=== PATIENT | female | born 1990 | race Asian ===

== ENCOUNTER 2019-10-24 18:43 | Emergency (ER) | payer OTHER ==
[2019-10-24] MEDS ORDERED: Ondansetron INJ* 2 MG/ML VIAL IV ONE (19:25)
[2019-10-24] MEDS ORDERED: Pantoprazole IV* 40 MG IV ONE (19:25)
[2019-10-24] MEDS ORDERED: NS 0.9% 1000 ML** 1,000 ML IV ONE (19:25)
[2019-10-24] MEDS ORDERED: Ketorolac INJ* 15 MG/ML 1 ML VIAL IV ONE (19:25)
[2019-10-24 20:00] LABS: Hematocrit 39 % (35-47); Hemoglobin 12.4 g/dL (12.0-16.0); Mean Corpuscular HGB Conc 32 g/dL (31-36); Mean Corpuscular Hemoglobin 22 pg (27-31); Mean Corpuscular Volume 69 fL (80-97); Mean Platelet Volume 8.2 fL (7.4-10.4); Platelet Count 170 10^3/uL (150-450); Red Blood Count 5.61 10^6 /uL (3.70-4.87); Red Cell Distribution Width 15 % (10-15); White Blood Count 4.8 10^3/uL (3.5-10.8)
[2019-10-24 20:05] LABS: INR 1.19 (0.82-1.09)
[2019-10-24 20:14] LABS: ABS Lymphocytes 0.2 10^3/ul (1.0-4.8); ABS Monocytes 0.1 10^3/ul (0-0.8); ABS Neutrophils 4.5 10^3/ul (1.5-7.7); Eosinophil % 0.2 %; Lymphocyte % 3.2 %; Microcytosis 2+
[2019-10-24 20:19] LABS: ALT 18 U/L (7-52); AST 25 U/L (13-39); Albumin 4.8 g/dL (3.2-5.2); Albumin/Globulin Ratio 1.5 (1-3); Alkaline Phosphatase 32 U/L (34-104); Amylase 36 U/L (29-103); Anion Gap 6 mmol/L (2-11); BUN/Creatinine Ratio 19.4 (8-20); Blood Urea Nitrogen 14 mg/dL (6-24); C Reactive Protein 26.76 mg/L (<8.01); CO2 Carbon Dioxide 27 mmol/L (22-32); Calcium 9.3 mg/dL (8.6-10.3); Chloride 101 mmol/L (101-111); EGFR African American 117.6 (>60); EGFR Non-African American 97.2 (>60); Globulin 3.1 g/dL (2-4); Glucose 117 mg/dL (70-100); Potassium 3.3 mmol/L (3.5-5.0); Sodium 134 mmol/L (135-145); Total Protein 7.9 g/dL (6.4-8.9)
[2019-10-24 20:22] LABS: HCG Pregnancy < 0.60 mIU/mL
--- NOTE | 2019-10-24 20:37 | ED ---
Abdominal Pain/Female - HPI Summary HPI Summary: 29 year old F presenting to [facility] with a chief complaint of intermittent sharp abdominal pain worse on the left since 16:30 today. The patient rates the pain 8 /10 in severity. Patient reports vomiting earlier today, bloating, a fever and chills 2 days ago that has since resolved, diarrhea, nausea, constipation for 2- 3 days which resolved today, and a decreased appetite. Symptoms aggravated by exertion. Symptoms alleviated by lying down and Tylenol. Patient denies any hematuria or previous surgeries. She also denies any recreational drug use. Medication list reviewed. Allergy list reviewed. Home Medications Medication Instructions Recorded Confirmed Type NK [No Home Medications Reported] 10/24/19 10/24/19 History - History of Current Complaint Chief Complaint: EDAbdPain Stated Complaint: ABD PAIN PER PT Time Seen by Provider: 10/24/19 20:29 Hx Obtained From: Patient Onset/Duration: Lasting Days, Still Present Timing: Intermittent Episode Lasting Severity Initially: Moderate Severity Currently: Moderate Pain Intensity: 8 Pain Scale Used: 0-10 Numeric Location: Epigastric - Worse on the left side Character: Sharp Aggravating Factor(s): Other: - Exertion Alleviating Factor(s): Position - Lying down, Medications - Tylenol Associated Signs and Symptoms: Positive: Negative - Hematuria, Fever, Constipation, Decreased Appetite, Nausea, Vomiting, Diarrhea, Other: - Bloating ; chills; diarrhea Allergies/Adverse Reactions: Allergies Allergy/AdvReac Type Severity Reaction Status Date / Time No Known Allergies Allergy Verified 10/24/19 18:50 Home Medications: Home Medications Dicyclomine CAP* [Bentyl CAP*] 10 mg PO TID PRN #20 cap 10/24/19 [Rx] Ondansetron ODT TAB* [Zofran 4 MG Odt TAB*] 4 mg PO Q8H PRN #12 tab.odt [Rx] PMH/Surg Hx/FS Hx/Imm Hx Endocrine/Hematology History: Denies: Hx Diabetes Cardiovascular History: Denies: Hx Hypertension Sensory History: Denies: Hx Legally Blind, Hx Deafness Opthamlomology History: Denies: Hx Legally Blind EENT History: Denies: Hx Deafness - Surgical History Surgical History: None Infectious Disease History: No Infectious Disease History: Denies: Traveled Outside the [place] in Last 30 Days - Family History Known Family History: Negative: Hypertension, Diabetes - Social History Alcohol Use: None Hx Substance Use: No Substance Use Type: Reports: None Hx Tobacco Use: No Smoking Status (MU): Never Smoked Tobacco Review of Systems Positive: Fever, Chills Positive: Abdominal Pain, Vomiting, Diarrhea, Nausea, Other - Bloating; constipation; decreased appetite Negative: hematuria All Other Systems Reviewed And Are Negative: Yes Physical Exam - Summary Physical Exam Summary: Constitutional: Well-developed, Well-nourished, Alert. (-) Distressed Skin: Warm, Dry HENT: Normocephalic; Atraumatic Eyes: Conjunctiva normal Neck: Musculoskeletal ROM normal neck. (-) JVD, (-) Stridor, (-) Tracheal deviation Cardio: Rhythm regular, rate normal, Heart sounds normal; Intact distal pulses; Radial pulses are 2+ and symmetric. (-) Murmur Pulmonary/Chest wall: Effort normal. (-) Respiratory distress, (-) Wheezes, (-) Rales Abd: Soft, (-) tenderness, Slight distension, (-) Guarding, (-) Rebound Musculoskeletal: (-) Edema Lymph: (-) Cervical adenopathy Neuro: Alert, Oriented x3 Psych: Mood and affect Normal Triage Information Reviewed: Yes Vital Signs On Initial Exam: Initial Vitals Temp Pulse Resp BP Pulse Ox 99.8 F 105 18 142/54 102 10/24/19 18:45 10/24/19 18:45 10/24/19 18:45 10/24/19 18:45 10/24/19 18:45 Vital Signs Reviewed: Yes Procedures - Sedation Patient Received Moderate/Deep Sedation with Procedure: No Diagnostics - Vital Signs Vital Signs Temp Pulse Resp BP Pulse Ox 10/24/19 18:45 99.8 F 105 18 142/54 102 - Laboratory Lab Results: Lab Results 10/24/19 10/24/19 10/24/19 Range/Units 19:52 19:52 19:52 WBC 4.8 (3.5-10.8) 10^3/uL RBC 5.61 H (3.70-4.87) 10^6 /uL Hgb 12.4 (12.0-16.0) g/dL Hct 39 (35-47) % MCV 69 L (80-97) fL MCH 22 L (27-31) pg MCHC 32 (31-36) g/dL RDW 15 (10-15) % Plt Count 170 (150-450) 10^3/uL MPV 8.2 (7.4-10.4) fL Neut % (Auto) 93.8 % Lymph % (Auto) 3.2 % [place] % (Auto) 2.7 % Eos % (Auto) 0.2 % Baso % (Auto) 0.1 % Absolute Neuts (auto) 4.5 (1.5-7.7) 10^3/ul Absolute Lymphs (auto) 0.2 L (1.0-4.8) 10^3/ul Absolute Monos (auto) 0.1 (0-0.8) 10^3/ul Absolute Eos (auto) 0.0 (0-0.6) 10^3/ul Absolute Basos (auto) 0.0 (0-0.2) 10^3/ul Absolute Nucleated RBC 0.0 10^3/ul Nucleated RBC % 0.0 Hypochromasia 2+ Microcytosis 2+ INR (Anticoag Therapy) 1.19 H (0.82-1.09) Sodium 134 L (135-145) mmol/L Potassium 3.3 L (3.5-5.0) mmol/L Chloride 101 (101-111) mmol/L Carbon Dioxide 27 (22-32) mmol/L Anion Gap 6 (2-11) mmol/L BUN 14 (6-24) mg/dL Creatinine 0.72 (0.51-0.95) mg/dL Est GFR ( Amer) 117.6 (>60) Est GFR (Non-Af Amer) 97.2 (>60) BUN/Creatinine Ratio 19.4 (8-20) Glucose 117 H (70-100) mg/dL Lactic Acid (0.5-2.0) mmol/L Calcium 9.3 (8.6-10.3) mg/dL Total Bilirubin 0.40 (0.2-1.0) mg/dL AST 25 (13-39) U/L ALT 18 (7-52) U/L Alkaline Phosphatase 32 L (34-104) U/L C-Reactive Protein 26.76 H (<8.01) mg/L Total Protein 7.9 (6.4-8.9) g/dL Albumin 4.8 (3.2-5.2) g/dL Globulin 3.1 (2-4) g/dL Albumin/Globulin Ratio 1.5 (1-3) Amylase 36 (29-103) U/L Lipase 10 L (11.0-82.0) U/L Beta HCG, Quant < 0.60 mIU/mL 10/24/19 Range/Units 19:52 WBC (3.5-10.8) 10^3/uL RBC (3.70-4.87) 10^6 /uL Hgb (12.0-16.0) g/dL Hct (35-47) % MCV (80-97) fL MCH (27-31) pg MCHC (31-36) g/dL RDW (10-15) % Plt Count (150-450) 10^3/uL MPV (7.4-10.4) fL Neut % (Auto) % Lymph % (Auto) % [place] % (Auto) % Eos % (Auto) % Baso % (Auto) % Absolute Neuts (auto) (1.5-7.7) 10^3/ul Absolute Lymphs (auto) (1.0-4.8) 10^3/ul Absolute Monos (auto) (0-0.8) 10^3/ul Absolute Eos (auto) (0-0.6) 10^3/ul Absolute Basos (auto) (0-0.2) 10^3/ul Absolute Nucleated RBC 10^3/ul Nucleated RBC % Hypochromasia Microcytosis INR (Anticoag Therapy) (0.82-1.09) Sodium (135-145) mmol/L Potassium (3.5-5.0) mmol/L Chloride (101-111) mmol/L Carbon Dioxide (22-32) mmol/L Anion Gap (2-11) mmol/L BUN (6-24) mg/dL Creatinine (0.51-0.95) mg/dL Est GFR ( Amer) (>60) Est GFR (Non-Af Amer) (>60) BUN/Creatinine Ratio (8-20) Glucose (70-100) mg/dL Lactic Acid 0.6 (0.5-2.0) mmol/L Calcium (8.6-10.3) mg/dL Total Bilirubin (0.2-1.0) mg/dL AST (13-39) U/L ALT (7-52) U/L Alkaline Phosphatase (34-104) U/L C-Reactive Protein (<8.01) mg/L Total Protein (6.4-8.9) g/dL Albumin (3.2-5.2) g/dL Globulin (2-4) g/dL Albumin/Globulin Ratio (1-3) Amylase (29-103) U/L Lipase (11.0-82.0) U/L Beta HCG, Quant mIU/mL Result Diagrams: 10/24/19 19:52 10/24/19 19:52 Lab Statement: Any lab studies that have been ordered have been reviewed, and results considered in the medical decision making process. Re-Evaluation - Re-Evaluation 21:45 Re-Evaluation Time: 21:45 Change: Improved Comment: Patient is feeling better. Abdominal Pain Fem Course/Dx - Course Course Of Treatment: Is here with 3 days of fever, vomiting, abdominal cramping , bloating. Patient had sharp left sided abdominal pain today that has gotten better after passing gas. Patient has no tenderness on exam is overall well- appearing. Patient has no leukocytosis and a normal CRP. Had a flu swab performed which was negative. Patient is given Maalox. The discussion of a CT scan was had with patient multiple times. Patient was thinking about getting a CT scan, her symptoms got much better after passing gas. The decision was made to not obtain a CT scan and patient was discharged with Bentyl and Zofran - Diagnoses Provider Diagnoses: Nausea, Vomiting, Left sided abdominal pain, Gas pain Discharge ED - Sign-Out/Discharge Documenting (check all that apply): Patient Departure - Discharge Plan Condition: Stable Disposition: HOME Prescriptions: Dicyclomine CAP* [Bentyl CAP*] 10 mg PO TID PRN #20 cap PRN Reason: abdominal cramping Ondansetron ODT TAB* [Zofran 4 MG Odt TAB*] 4 mg PO Q8H PRN #12 tab.odt PRN Reason: Nausea Patient Education Materials: Acute Nausea and Vomiting (ED), Gas and Bloating ( ED), Abdominal Pain (ED) Referrals: [facility] [Provider Group] - 3 Days Additional Instructions: Follow-up with [facility] in 1-3 days. Take your medications as prescribed. Start drinking Pedialyte to stay hydrated. Return to the emergency department for any severe abdominal pain especially on the right side, unexpected vaginal bleeding, if you cannot tolerate any foods for 12 hours, or for any other concerning symptoms. - Billing Disposition and Condition Condition: STABLE Disposition: Home - Attestation Statements Document Initiated by Effie: Yes Documenting Scribe: Delmi Glover Provider For Whom Effie is Documenting (Include Credential): Calvin Fallon MD Scribe Attestation: I, Delmi Glover, scribed for Calvin Fallon MD on at 1212. Scribe Documentation Reviewed: Yes Provider Attestation: The documentation as recorded by the effie, Delmi Glover accurately reflects the service I personally performed and the decisions made by me, Calvin Fallon MD Status of Scribe Document: Viewed
[2019-10-24] MEDS ORDERED: Al Hydrox/Mg Hydrox/Simet LIQ* 30 ML UDC PO ONE (20:41)
[2019-10-24 21:32] LABS: Influenza A Molecular Negative (Negative); Influenza B Molecular Negative (Negative)
[2019-10-24 22:39] VITALS: BP 118/72
== END 2019-10-24 22:30 | disposition home or self-care (01) ==
LOC: ED 18:43
DX: R10.9 Unspecified abdominal pain (principal); R11.2 Nausea with vomiting, unspecified; R14.1 Gas pain
CPT/HCPCS: 36415; 80053; 82150; 83605; 83690; 84702; 85025; 85610; 86140; 96360; 99283; A9270-GY; J1885; J2405